=== PATIENT | female | born 1945 | race Caucasian/White ===

== ENCOUNTER 2017-12-26 10:17 | Emergency (ER) | payer MEDICARE, MEDICAID ==
[~2017-12-26 10:17] MED LIST: ACETAMIN325 MG PO; ALENDRONATE70 MG PO; ALTACE5 M1 PO; ASPIRIN EC325 MG PO; FLUTICASONE50 MCG; LEVOTHYROXIN100 MCG PO; LIPITOR20 MG PO; NAPROSYN500 MG PO; OMEPRAZOLE20 MG PO; SIMVASTATIN80 MG PO; SYNTHROID125 MCG PO; TRAMADOL HYDROC50 MG PO
[2017-12-26] MEDS ORDERED: ELIQUIS2.5 MG PO (10:46)
[2017-12-26] MEDS ORDERED: AMIODARONE HCL200 MG PO (10:46)
[2017-12-26] MEDS ORDERED: SUMATRIPTAN25 MG PO (11:05)
[2017-12-26] MEDS ORDERED: SORINE120 MG PO (11:06)
[2017-12-26] MEDS ORDERED: LIPITOR20 MG PO (11:07)
[2017-12-26] MEDS ORDERED: SYNTHROID100 MCG PO (11:07)
== END 2017-12-26 10:24 | disposition left against medical advice (07) ==
LOC: ED 10:17 → LWOBS 10:23
DX: Z91.19 Patient's noncompliance with other medical treatment and regimen (principal)

== ENCOUNTER 2017-12-26 10:39 | Emergency (ER) | payer MEDICARE, MEDICAID ==
[~2017-12-26] VITALS: Ht 160 cm; Wt 70.9 kg
[2017-12-26] MEDS ORDERED: ELIQUIS2.5 MG PO (10:46)
[2017-12-26] MEDS ORDERED: AMIODARONE HCL200 MG PO (10:46)
[2017-12-26 11:03] VITALS: BP 145/75
[2017-12-26] MEDS ORDERED: SUMATRIPTAN25 MG PO (11:05)
[2017-12-26] MEDS ORDERED: SORINE120 MG PO (11:06)
[2017-12-26] MEDS ORDERED: SYNTHROID100 MCG PO (11:07)
[2017-12-26] MEDS ORDERED: LIPITOR20 MG PO (11:07)
== END 2017-12-26 11:10 | disposition home or self-care (01) ==
LOC: ED 10:39
DX: S61.011D Laceration without foreign body of right thumb without damage to nail, subsequent encounter (principal); W19.XXXD Unspecified fall, subsequent encounter